=== PATIENT | male | born 1950 | race Caucasian/White ===

== ENCOUNTER 2016-06-09 14:23 | Emergency (ER) | payer OTHER ==
[2016-06-09 14:30] VITALS: O2SAT 100
[2016-06-09] MEDS ORDERED: BABY ASPIRIN 81 MG CHEW ONE (14:36)
[2016-06-09] MEDS ORDERED: Nitrostat 0.4 MG (ED) SL ONE (14:37)
[2016-06-09] MEDS ORDERED: Sodium Chloride 0.9% 1000 ML 1,000 ML ONE (14:41)
--- NOTE | 2016-06-09 14:43 | ERPHSYRPT ---
- History of Present Illness Time Seen by Provider: 06/09/16 14:36 Historian: patient, family Exam Limitations: no limitations Patient Subjective Stated Complaint: PT REPORTS CHEST PAIN BEGINNING SCARLET 1400- REPORTS SLIGHT DIAPHORSIS-SOB WITH MOVEMENT-DENIES RECENT ILLNESS OR COUGH Triage Nursing Assessment: PT FLUSHED WARM ET DRY UPON ARRIVAL-LUNGS CLEAR- RADIAL PULSE REGULAR ET STRONG Physician History: The patient is a 66-year-old male with his complaining of a sudden onset of central chest pain about 30 minutes ago while sitting down. He had some sweating and no shortness of breath. He says the pain is about an 8 or 9 out of 10 and it feels like a pressure. He says it is intense. He doesn't smoke. He's had no cardiac history area he does not take any medicines. He has no family history of heart disease. Timing/Duration: hour(s) (1/2), constant, sudden Activities at Onset: rest Quality: pressure Location: central Chest Pain Radiation: no radiation Severity of Pain-Max: severe Severity of Pain-Current: severe Modifying Factors: Improves With: nothing Associated Symptoms: diaphoresis Prior Chest Pain/Cardiac Workup: no prior chest pain Nitro Today/Relief: no nitro taken today Aspirin Treatment Today: 81 mg x 2 Allergies/Adverse Reactions: No Known Drug Allergies Allergy (Unverified 06/09/16 14:31) Home Medications: [place]-3 Fatty Acids [Fish Oil] 300 mg PO TID 06/09/16 [History] Hx Tetanus, Diphtheria Vaccination/Date Given: No Hx Influenza Vaccination/Date Given: No Hx Pneumococcal Vaccination/Date Given: No Immunizations Up to Date: Yes - Review of Systems Constitutional: No Fever, No Chills Eyes: No Symptoms Ears, Nose, & Throat: No Symptoms Respiratory: No Cough, No Dyspnea Cardiac: Chest Pain Abdominal/Gastrointestinal: No Abdominal Pain, No Nausea, No Vomiting, No Diarrhea Genitourinary Symptoms: No Dysuria Musculoskeletal: No Back Pain, No Neck Pain Skin: No Rash Neurological: No Dizziness, No Focal Weakness, No Sensory Changes Psychological: No Symptoms Endocrine: No Symptoms Hematologic/Lymphatic: No Symptoms Immunological/Allergic: No Symptoms All Other Systems: Reviewed and Negative - Past Medical History Pertinent Past Medical History: No - Past Surgical History Past Surgical History: Yes Musculoskeletal: Orthopedic Surgery - Social History Smoking Status: Never smoker Exposure to second hand smoke: No Drug Use: none Patient Lives Alone: No - Nursing Vital Signs Temperature: 97.8 F Temperature Source: Oral Pulse Rate: 60 Respiratory Rate: 22 Blood Pressure: 150/82 Pain Intensity: 9 - Physical Exam General Appearance: moderate distress Eye Exam: PERRL/EOMI, eyes nml inspection Ears, Nose, Throat Exam: normal ENT inspection, moist mucous membranes Neck Exam: normal inspection, non-tender, supple, full range of motion Respiratory Exam: normal breath sounds, lungs clear, No respiratory distress Cardiovascular Exam: regular rate/rhythm, normal heart sounds Gastrointestinal/Abdomen Exam: soft, No tenderness, No mass Rectal Exam: not done Back Exam: normal inspection, No CVA tenderness, No vertebral tenderness Extremity Exam: normal inspection, normal range of motion Neurologic Exam: alert, oriented x 3, cooperative, normal mood/affect, sensation nml, No motor deficits Skin Exam: normal color, warm, dry SpO2 Interpretation: normal SpO2: 100 Oxygen Delivery: Room Air - Course EKG Interpreted by Me: Sinus Rhythm, NORMAL AXIS, ST Elev (II, III, aVF) - Progress Progress: improved Air Movement: good Progress Note: 06/09/16 14:44 I discussed the patient's clinical findings and the EKG with Dr. Crystal at [facility] and we have decided to call a STEMI and transfer the patient immediately to [facility]. The patient will receive Effient, nitroglycerin glycerin sublingual, and 4 baby aspirin total. Blood Culture(s) Obtained: No Antibiotics given: No Discussed with Dr.: Other (Mary) Counseled pt/family regarding: diagnosis - Departure Time of Disposition: 14:45 Departure Disposition: Transfer (Transfer to [facility] per Dr Hernandez.) Clinical Impression: STEMI (ST elevation myocardial infarction) Condition: Good Critical Care Time: No
[2016-06-09] MEDS ORDERED: Zofran 4 MG/2 ML VIAL ONE (14:46)
[2016-06-09] MEDS ORDERED: BABY ASPIRIN 81 MG CHEW PO ONE (14:46)
[2016-06-09 14:57] VITALS: BP 130/83; PULSE 80
[2016-06-09 15:02] LABS: BASOPHIL % 0.3 % (0.0-0.4); Eosinophil % 1.7 % (0.00-5.0); Granulocytes % 71.6 % (36.0-66.0); Lymphocytes % 18.5 % (24.0-44.0); Mean Cell Volume 90.8 fl (78-100); Mean Corpuscular Hemoglobin 31.3 pg (26-32); Monocytes % 7.9 % (0.0-12.0); Platelet Count 238 K/mm3 (150-450); Red Blood Count 4.99 M/mm3 (4.1-5.6); White Blood Count 7.6 K/mm3 (4.0-10.5)
[2016-06-09 15:28] LABS: ALKALINE PHOSPHATASE 88 U/L (46-116); ANION GAP 13.1 MEQ/L (5-15); BILIRUBIN,TOTAL 0.5 mg/dL (0.2-1.0); BLOOD UREA NITROGEN 14 mg/dL (9-20); CHLORIDE 105 mEq/L (98-107); Carbon Dioxide 25.8 mEq/L (21-32); Glucose 96 MG/DL (70-110); Potassium 4.1 mEq/L (3.5-5.1); SGOT/AST 19 U/L (15-37); SGPT/ALT 21 U/L (12-78); SODIUM 140 mEq/L (136-145); Total Protein 7.6 gm/dL (6.4-8.2)
== END 2016-06-09 14:50 | disposition short-term general hospital (02) ==
LOC: ED 14:23
DX: I21.3 ST elevation (STEMI) myocardial infarction of unspecified site (principal); R07.89 Other chest pain
CPT/HCPCS: 36000; 36415; 80053; 84484; 85025; 93005; 93041; 99283; J2405

== ENCOUNTER 2019-02-21 06:01 | Day surgery (SDC) | payer OTHER ==
[2019-02-21] MEDS ORDERED: Lactated Ringers 1,000 ML IV SCH (06:30)
[2019-02-21 09:03] VITALS: O2SAT 99
--- NOTE | 2019-02-21 09:03 | OP ---
SURGERY DATE/TIME: 02/20/2019 0750 PREOPERATIVE DIAGNOSIS: Screening exam. POSTOPERATIVE DIAGNOSIS: Mild sigmoid diverticulosis otherwise normal colon. PROCEDURE: Colonoscopy. SURGEON: Dr. Valadez. ANESTHESIA: MAC. Medications given by anesthesia department. HISTORY: The patient is a 68 year-old white male patient presenting now for screening colonoscopy. He was appraised of the risks of the procedure including the risk of perforation, phlebitis, untoward reaction to medication, bleeding and missed lesions. The patient verbalized his understanding and desired to have the procedure performed. DESCRIPTION OF PROCEDURE: The patient was given the medications by the anesthesia department. He had continuous pulse oximetry, ECG monitoring, intermittent blood pressure monitoring and tidal CO2 monitoring during the examination. He was placed in the left lateral decubitus position. A digital rectal examination was performed and revealed normal anal sphincter tone, no masses and normal prostate. The flexible Olympus pediatric colonoscope was used to intubate the rectum. A view of the colon was developed sequentially to the cecum. Upon insertion and withdrawal there was noted mild sigmoid diverticulosis otherwise no other mucosal lesions were encountered. The scope was removed from the patient who tolerated the procedure well and was sent back to OP recovery in good condition. The prep was noted to be fair to good.
[2019-02-21 09:34] VITALS: BP 131/85; PULSE 60
== END 2019-02-21 09:10 | disposition home or self-care (01) ==
LOC: SDC 06:01
PROVIDERS: ATTEND Family Medicine
DX: Z12.11 Encounter for screening for malignant neoplasm of colon (principal); K57.30 Diverticulosis of large intestine without perforation or abscess without bleeding